=== PATIENT | female | born 1975 | race African-American/Black ===

== ENCOUNTER 2017-10-24 08:37 | Emergency (ER) | payer OTHER ==
[2017-10-24 08:46] VITALS: BP 158/90; PULSE 80; TEMP 98.3; BMI 29.9
--- NOTE | 2017-10-24 09:09 | PDOC ---
History of Present Illness - General Chief Complaint: Abscess Boil Stated Complaint: ABSCESS, PAIN Time Seen by Provider: 10/24/17 08:49 History Source: Patient Exam Limitations: No Limitations - History of Present Illness Initial Comments: 10/24/17 09:29 Patient is a [42-year-old female, history of hypertension presents with persistent draining lesions under bilateral armpits and sporadic throughout the body. Patient states they come and go they're painful not associated with fever in 2016 was seen by a physician who gave her amoxicillin. ] Past Medical History: [Denies]. Allergies: No known allergies Medications: [Chlorothiazide] Family History: Non-contributory Social History: Denies smoking, alcohol use, or IVDU Review of Systems GENERAL/CONSTITUTIONAL: [No fever or chills. No weakness. No weight change.] HEAD, EYES, EARS, NOSE AND THROAT: [No change in vision. No ear pain or discharge. No sore throat. ] CARDIOVASCULAR: [No chest pain or shortness of breath.] RESPIRATORY: [No cough, wheezing, or hemoptysis.] GASTROINTESTINAL: [No nausea, vomiting, diarrhea or constipation. No rectal bleeding.] GENITOURINARY: [No dysuria, frequency, or change in urination.] MUSCULOSKELETAL: [No joint or muscle swelling or pain. No neck or back pain.] SKIN : [No rash or easy bruising. Multiple draining pustulant drainage painful lesions under bilateral armpits and healed lesions generalized] NEUROLOGIC: [No headache, vertigo, loss of consciousness, or loss of sensation.] HEMATOLOGIC/LYMPHATIC: [No anemia, easy bleeding, or history of blood clots.] ALLERGIC/IMMUNOLOGIC: [No hives or skin allergy. No latex allergy.] Physical Exam: GENERAL: [The patient is awake, alert, and fully oriented, in no acute distress. ] EYES: [Pupils equal, round and reactive to light, extraocular movements intact, sclera anicteric, conjunctiva clear.] ENT: [Ears normal, nares patent, oropharynx clear without exudates. Moist mucous membranes. No uvula deviation] NECK: [Normal range of motion, supple without lymphadenopathy, JVD, or masses.] LUNGS: [Breath sounds equal, clear to auscultation bilaterally. No wheezes, and no crackles.] HEART: [Regular rate and rhythm, normal S1 and S2 without murmur, rub or gallop. ] ABDOMEN: [Soft, nontender, normoactive bowel sounds. No guarding, no rebound. No masses. No bruising or abrasions] MUSCULOSKELETAL: [Normal range of motion, no edema. No clubbing or cyanosis. No cords, erythema, or tenderness. No CVA Tenderness with fist.] NEUROLOGICAL: [Cranial nerves II through XII grossly intact. Normal speech, normal gait.] SKIN: [Warm, Dry, normal turgor, no rashes or lesions noted. Multiple sporadic draining painful lesions, more concentrated under bilateral axilla. ] Past History - Past Medical History Allergies/Adverse Reactions: Allergies Allergy/AdvReac Type Severity Reaction Status Date / Time No Known Allergies Allergy Verified 10/24/17 08:46 Home Medications: Ambulatory Orders Chlorhexidine Gluconate [Hibiclens For Decolonization -] 1 applic TP DAILY #2 bottle 10/24/17 Hydrochlorothiazide [Hctz -] 25 mg PO DAILY 10/24/17 Sulfamethoxazole/Trimethoprim [Bactrim Ds -] 1 tab PO BID #20 tablet 10/24/17 COPD: No HTN: Yes - Suicide/Smoking/Psychosocial Hx Smoking History: Never smoked Hx Alcohol Use: No Drug/Substance Use Hx: No Substance Use Type: None *Physical Exam - Vital Signs Last Vital Signs Temp Pulse Resp BP Pulse Ox 98.3 F 80 18 158/90 100 10/24/17 08:43 10/24/17 08:43 10/24/17 08:43 10/24/17 08:43 10/24/17 08:43 Medical Decision Making - Medical Decision Making 10/24/17 09:31 A/P: Patient with multiple draining lesions under bilateral axilla and sporadic the body which those are healing. Patient was given amoxicillin in the past which patient reports did nothing. Lesions are highly suspicious for MRSA. Wound culture to right axilla sent. I will start patient on Hibiclens to wash body daily and Bactrim, follow-up with dermatology today at 11 AM, Dr. Snyder. Follow-up with result in one week, and also Dr. Bowden from infectious disease. *DC/Admit/Observation/Transfer Diagnosis at time of Disposition: Hidradenitis - Discharge Dispostion Disposition: HOME Condition at time of disposition: Stable Admit: No - Prescriptions Prescriptions: Chlorhexidine Gluconate [Hibiclens For Decolonization -] 1 applic TP DAILY #2 bottle Sulfamethoxazole/Trimethoprim [Bactrim Ds -] 1 tab PO BID #20 tablet - Referrals Referrals: Ej Cruz [Primary Care Provider] - William Snyder [Non Staff, Medical] - Hiral Bowden MD [Staff Physician] - - Patient Instructions Additional Instructions: Maintain good hand and body hygiene. ... Keep cuts, scrapes and wounds clean and covered until healed. Avoid sharing personal items such as towels and razors. Get care early if you think you might have an infection. Dry sheets on the warmest setting possible. Bathe in chlorhexidine (HIBICLENS) soap or bath water with a small amount of liquid bleach, usually about 1 teaspoon for every gallon of bathwater. Both of these interventions can be used to rid the skin of MRSA - Post Discharge Activity Forms/Work/School Notes: Back to Work
== END 2017-10-24 09:24 | disposition home or self-care (01) ==
LOC: SUPCPDRO 08:37 → JERFT 08:37
DX: L73.2 Hidradenitis suppurativa (principal); I10 Essential (primary) hypertension
CPT/HCPCS: 87070; 87186; 87205; 99281-25

== ENCOUNTER 2023-03-31 09:32 | Emergency (ER) | payer OTHER ==
[2023-03-31 09:42] VITALS: BP 125/85; RESP 20; TEMP 98.5; BMI 32.4
[2023-03-31] MEDS ORDERED: ACETAMINOPHEN 500 MG TABLET (FP) PO ONE (10:05)
[2023-03-31] MEDS ORDERED: ACETAMINOPHEN 500 MG TABLET (FP) ONE (10:21)
[2023-03-31 11:36] VITALS: PULSE 72
== END 2023-03-31 11:39 | disposition home or self-care (01) ==
LOC: JERFT 09:32
DX: M79.10 Myalgia, unspecified site (principal); R09.81 Nasal congestion; U07.1 COVID-19
CPT/HCPCS: 0241U-QW